=== PATIENT | female | born 1980 | race African-American/Black ===

== ENCOUNTER 2023-07-19 12:55 | Emergency (ER) | payer OTHER, MEDICARE ==
[2023-07-19] MEDS ORDERED: Acetaminophen 500 MG TAB ONE (13:32)
== END 2023-07-19 14:49 | disposition home or self-care (01) ==
LOC: CSHERS 12:55
DX: M54.2 Cervicalgia (principal); M54.6 Pain in thoracic spine; M54.50 Low back pain, unspecified; V89.2XXA Person injured in unspecified motor-vehicle accident, traffic, initial encounter
CPT/HCPCS: 70450; 72125; 72128; 72131; G0390